=== PATIENT | male | born 1990 | race Caucasian/White ===

== ENCOUNTER 2018-12-30 23:58 | Emergency (ER) | payer SELFPAY ==
[~2018-12-30] VITALS: Ht 172.7 cm; Wt 81.6 kg
[2018-12-31 00:10] VITALS: BP 150/80
--- NOTE | 2018-12-31 00:10 | NUR ---
ED Nurse Note: Pt brought in by [facility], friends called after pt began projectile vomiting in a car. Friends state pt ingested marijuana infused candies. Upon assessment pt non-verbal, unresponsive. VSS aside from tachycardia. No reaction to pain. Pupils sluggish. Showing no signs of acute distress. Blood and urine specimens drawn.
--- NOTE | 2018-12-31 00:16 | Emergency Room Report ---
History of Present Illness General Chief Complaint: Altered Mental Status Source: EMS Present Illness HPI Is a 28-year-old male with no past medical history. He presents with chief complaint of altered mental status. According to EMS, friend said that he had some marijuana candy and started vomiting. Afterward he became altered with unresponsiveness. No trauma. They called 911. Unknown other drug use or alcohol. Unable to get any history from this patient. Allergies: Coded Allergies: UNABLE TO ASSESS (Unverified , 12/31/18) Patient History Past Medical History: see triage record, old chart reviewed Past Surgical History: unable to obtain, other Pertinent Family History: unable to obtain Immunizations: other Reviewed Nursing Documentation: PMH: Agreed; PSxH: Agreed Nursing Documentation-PMH Past Medical History: No Stated History Review of Systems All Other Systems: limited - Secondary to condition Physical Exam Vital Signs Date Time Temp Pulse Resp B/P (MAP) Pulse Ox O2 Delivery O2 Flow Rate FiO2 12/30/18 23:58 97.9 110 14 150/80 100 Room Air vitals unremarkable Sp02 EP Interpretation: reviewed, normal General Appearance: well appearing, no apparent distress, other - Sleepy Head: normocephalic, atraumatic Eyes: bilateral eye PERRL, bilateral eye EOMI ENT: normal pharynx Neck: full range of motion, supple, no meningismus Respiratory: chest non-tender, lungs clear, normal breath sounds Cardiovascular #1: regular rate, rhythm, no murmur Gastrointestinal: normal bowel sounds, non tender, no mass, no organomegaly, no bruit, non-distended Musculoskeletal: back normal, normal range of motion Neurologic: grossly normal Psychiatric: mood/affect normal Skin: warm/dry Medical Decision Making Diagnostic Impression: Primary Impression: Altered mental status Qualified Codes: R41.82 - Altered mental status, unspecified Additional Impressions: Alcohol intoxication Qualified Codes: F10.920 - Alcohol use, unspecified with intoxication, uncomplicated Marijuana intoxication Qualified Codes: F12.920 - Cannabis use, unspecified with intoxication, uncomplicated ER Course Patient with alcohol intoxication and marijuana intoxication. His better now. He said for several hours and now awake. Able to give phone number to his friends. We'll discharge home. Last Vital Signs Date Time Temp Pulse Resp B/P (MAP) Pulse Ox O2 Delivery O2 Flow Rate FiO2 12/30/18 23:58 97.9 110 14 150/80 100 Room Air Status: improved Disposition: HOME, SELF-CARE Condition: Stable Scripts Unable to Obtain Active Prescriptions or Reported Meds Additional Instructions: Follow-up with your doctor in 7 days. Return if symptom worsen. Sanju Espinoza MD Dec 31, 2018 00:16
[2018-12-31 00:27] LABS: ANION GAP 15 mmol/L (5-15); BLOOD UREA NITROGEN 14 mg/dL (7-18); CALCIUM 8.8 MG/DL (8.5-10.1); CARBON DIOXIDE 25 MMOL/L (21-32); CHLORIDE 102 MMOL/L (98-107); POTASSIUM 2.9 MMOL/L (3.5-5.1); SODIUM 142 MMOL/L (136-145)
[2018-12-31 00:32] LABS: BASOPHILS % (AUTO) 1.3 % (0.0-2.0); EOSINOPHILS % (AUTO) 1.8 % (0.0-3.0); HEMATOCRIT 45.4 % (42.0-52.0); HEMOGLOBIN 16.2 G/DL (14.2-18.0); LYMPHOCYTES % (AUTO) 39.6 % (20.0-45.0); MEAN CORPUSCULAR VOLUME 86 FL (80-99); MONOCYTES % (AUTO) 7.4 % (1.0-10.0); NEUTROPHILS % (AUTO) 49.9 % (45.0-75.0); PLATELET COUNT 248 K/UL (150-450); RED BLOOD COUNT 5.26 M/UL (4.70-6.10); WHITE BLOOD COUNT 12.6 K/UL (4.8-10.8)
[2018-12-31 03:15] VITALS: BP 129/79
--- NOTE | 2018-12-31 06:07 | NUR ---
ED Nurse Note: Pt cleared by MD. Discharge instructions provided. Pt verbalized understanding of all instructions. All belongings taken with patient. ID and IV band removed. Pt A/Ox4, ambulatory with steady gait, Showing no signs of acute distress
[2018-12-31 06:10] VITALS: BP 128/50
== END 2018-12-31 06:05 | disposition home or self-care (01) ==
LOC: EDBD 23:58 → EMR 12-31 00:51
DX: R41.82 Altered mental status, unspecified (principal); F10.129 Alcohol abuse with intoxication, unspecified; F12.920 Cannabis use, unspecified with intoxication, uncomplicated; R11.10 Vomiting, unspecified
CPT/HCPCS: 36415; 80048; 80307; 85025; 96360; 99284; G0480; 80329